=== PATIENT | male | born 1960 | race Two or more races ===

== ENCOUNTER 2023-07-11 05:24 | Day surgery (SDC) | payer OTHER ==
[2023-07-11] MEDS ORDERED: POLYMYXIN B SULFATE 500,000 UNITS ONE (05:55)
[2023-07-11] MEDS ORDERED: BUPIVACAINE 0.5 % PF 150 MG/30 ML VIAL ONE (05:55)
[2023-07-11] MEDS ORDERED: FENTANYL PF 250MCG/5ML AMPUL ONE (06:15)
[2023-07-11] MEDS ORDERED: MIDAZOLAM HCL 2 MG/2ML VIAL ONE (06:16)
[2023-07-11] MEDS ORDERED: FAMOTIDINE/PF INJ 20 MG/2 ML VIAL IV ONE (06:17)
[2023-07-11] MEDS ORDERED: ROPIVACAINE HCL 0.5% 5 MG/ML 30ML VIAL ONE (06:17)
[2023-07-11] MEDS ORDERED: ROCURONIUM BROMIDE 50 MG/5 ML ONE (06:17)
[2023-07-11] MEDS ORDERED: TRANEXAMIC ACID 1,000 MG/10 ML VIAL ONE (06:20)
[2023-07-11] MEDS ORDERED: TRANEXAMIC ACID 3,000 MG in SODIUM CHLORIDE IRRIG SOLUTION 70 ML IR ONE (07:00)
[2023-07-11 09:48] LABS: HEMOGLOBIN 12.8 g/dL (13.5-17.5)
[2023-07-11] MEDS ORDERED: CEFAZOLIN 2 GM in IV D5W 100 ML IV ONE ×2 (10:00→11:00)
== END 2023-07-11 11:45 | disposition home or self-care (01) ==
LOC: DS 05:24
PROVIDERS: ATTEND Specialist
DX: M12.811 Other specific arthropathies, not elsewhere classified, right shoulder (principal); I10 Essential (primary) hypertension; E78.5 Hyperlipidemia, unspecified; Z98.890 Other specified postprocedural states; Z79.899 Other long term (current) drug therapy
CPT/HCPCS: 23472; 36415; 85027; A4217; A4565; C1776; J0690; J1100; J1885; J2250; J2405; J2704; J2795; J3010; J3490; J7030; J7040; J7060